=== PATIENT | female | born 1965 | race Two or more races ===

== ENCOUNTER 2025-11-12 12:53 | Emergency (ER) | payer OTHER ==
[~2025-11-12] VITALS: Ht 157.5 cm; Wt 67.0 kg
[2025-11-12 12:56] VITALS: TEMP 98.3; O2SAT 98
[2025-11-12 13:53] LABS: BASOPHILS % 0.2 % (0.0-2.0); EOSINOPHILS % 3.2 % (0.0-5.0); HEMATOCRIT. 33.6 % (36.0-48.0); HEMOGLOBIN. 9.8 g/dL (12.0-16.0); LYMPHOCYTES % 14.9 % (20.0-50.0); MEAN PLATELET VOLUME 8.9 fl (7.4-10.4); MONOCYTES % 9.4 % (2.0-8.0); NEUTROPHILS % 72.3 % (40.0-76.0); PLATELET 394 x1000/uL (130-400); RED BLOOD CELL COUNT 3.41 mill/uL (4.2-5.4); RED CELL DISTRIBUTION WIDTH 25.2 % (11.6-14.6)
[2025-11-12 13:54] LABS: CREATININE 0.7 mg/dL (0.6-1.0); ETHANOL BLOOD 164 mg/dL (<10); UREA NITROGEN BLOOD 6 mg/dL (9-23)
[2025-11-12 14:01] LABS: ADD RBC MORPHOLOGY YES
[2025-11-12 14:54] VITALS: BP 143/76; PULSE 98; RESP 16; O2SAT 99
[2025-11-12 18:08] LABS: PLATELET ESTIMATE NORMAL
== END 2025-11-12 15:03 | disposition home or self-care (01) ==
LOC: ER 12:53
DX: F10.129 Alcohol abuse with intoxication, unspecified (principal); Y90.9 Presence of alcohol in blood, level not specified; Z79.899 Other long term (current) drug therapy
CPT/HCPCS: 36415; 80048; 80307; 80320; 85025; 99283; G0480